=== PATIENT | female | born 1960 | race Caucasian/White ===

== ENCOUNTER 2021-05-27 14:06 | Outpatient (CLI) | payer OTHER ==
--- NOTE | 2021-05-27 16:42 | XRAY Report ---
PROCEDURE: Tib/Fib RT INDICATIONS: KNEE PAIN RT TECHNIQUE: 2 views of the tibia and fibula were acquired. COMPARISON: None. FINDINGS: Bones: No fractures or dislocations. No suspicious bony lesions. Soft tissues: No suspicious soft tissue calcifications or masses. IMPRESSION: No lower leg fracture or dislocation. No suspicious bony lesion or soft tissue abnormality. Reviewed by: Venkatesh Tavarez MD on 05/27/2021 4:41 PM PST Approved by: Venkatesh Tavarez MD on 05/27/2021 4:41 PM PST Station ID: [id number]
--- NOTE | 2021-05-28 09:54 | XRAY Report ---
PROCEDURE: Knee 2 View RT INDICATIONS: Knee pain RT TECHNIQUE: 2 views of the right knee(s) were acquired. COMPARISON: X-ray right tibia and fibula, 05/27/2021. FINDINGS: Bones: No fractures or dislocations. Mild degenerative joint disease. No suspicious bony lesions. Soft tissues: No joint effusion. No suspicious soft tissue calcifications. IMPRESSION: Mild degenerative joint disease. Reviewed by: Lauryn Hyde MD on 05/28/2021 9:52 AM PST Approved by: Lauryn Hyde MD on 05/28/2021 9:52 AM PST Station ID: [id number]
== END 2021-05-27 14:07 | disposition home or self-care (01) ==
LOC: EDBD → DI 14:06
PROVIDERS: ATTEND Internal Medicine
DX: M79.661 Pain in right lower leg (principal); M17.11 Unilateral primary osteoarthritis, right knee

== ENCOUNTER 2021-09-04 09:08 | Outpatient (CLI) | payer OTHER ==
--- NOTE | 2021-09-11 14:51 | Mammography Report ---
BILATERAL DIGITAL SCREENING MAMMOGRAM 3D/2D: 09/04/2021 CLINICAL: Routine screening. Additional films were requested but not obtained. There are scattered fibroglandular elements in bot h breasts. No significant masses, calcifications, or other findings are seen in either breast. IMPRESSION: NEGATIVE There is no mammographic evidence of malignancy. A 1 year screening mammogram is recommended. This exam was interpreted at Station ID: [id number]. NOTE: For mammograms, a report in lay terms will be sent to the patient. Approximately 15% of breast malignancies will not be visualized mammographically. In the management of a palpable breast mass, a negative mammogram must not discourage biopsy of a clinically suspicious lesion. Electronically Signed By: Ulises keyes/[email or web address]:09/11/2021 08:37:30 ACR BI-RADS Category 1: Negative 3341F PARENCHYMAL PATTERN: (A) - The breast(s) demonstrate(s) scattered fibroglandular densities. BI-RADS CATEGORY: (1) - 1 RECOMMENDATION: (ANNUAL) - Recommend routine annual screening mammography. [id number] 1 year screening LATERALITY: (B)
== END 2021-09-04 09:09 | disposition home or self-care (01) ==
LOC: DI.N 09:08
PROVIDERS: ATTEND Internal Medicine
DX: Z12.31 Encounter for screening mammogram for malignant neoplasm of breast (principal)

== ENCOUNTER 2023-05-18 09:58 | Outpatient (CLI) | payer OTHER ==
--- NOTE | 2023-05-19 11:00 | Mammography Report ---
BILATERAL DIGITAL SCREENING MAMMOGRAM 3D/2D: 05/18/2023 CLINICAL: Routine screening. Comparison is made to exam dated: 09/04/2021 mammogram - [facility]. There are scattered areas of fibroglandular density in both breasts (category b / 25%-50% glandular t issue). No significant masses, calcifications, or other findings are seen in either breast. There has been no significant interval change. IMPRESSION: NEGATIVE There is no mammographic evidence of malignancy. A 1 year screening mammogram is recommended. Based on the Tyrer Cuzick model (a risk assessment model) the patient's lifetime risk is 5.0% and her 10 year risk is 2.1%. According to the ACR, ACS, and NCCN guidelines, an annual breast MRI exam omid g with mammogram is recommended if the patients lifetime risk is 20% or greater. This exam was interpreted at Station ID: [id number]. NOTE: For mammograms, a report in lay terms will be sent to the patient. Approximately 15% of breast malignancies will not be visualized mammographically. In the management of a palpable breast mass, a negative mammogram must not discourage biopsy of a clinically suspicious lesion. Electronically Signed By: Adri Hurtado M.D., PH.D eb/[email or web address]:05/18/2023 22:02:21 letter sent: No_Letter ACR BI-RADS Category 1: Negative 3341F PARENCHYMAL PATTERN: (A) - The breast(s) demonstrate(s) scattered fibroglandular densities. BI-RADS CATEGORY: (1) - 1 Mammogram [id number] 1 year screening LATERALITY: (B)
== END 2023-05-18 09:59 | disposition home or self-care (01) ==
LOC: DI 09:58
PROVIDERS: ATTEND Physician Assistant
DX: Z12.31 Encounter for screening mammogram for malignant neoplasm of breast (principal); R92.323 Mammographic fibroglandular density, bilateral breasts

== ENCOUNTER 2023-06-16 16:43 | Outpatient (CLI) | payer OTHER ==
--- NOTE | 2023-06-17 11:20 | Ultrasound Report ---
PROCEDURE: Soft Tissue Head or Neck INDICATIONS: MULTINODULAR GOITER TECHNIQUE: Real-time scanning was performed of the thyroid gland, with image documentation. COMPARISON: None FINDINGS: Right: Thyroid lobe measures 4.6 x 1.7 x 1.8 cm, and is homogeneous in echotexture. Left: Thyroid lobe measures 5.1 x 1.6 x 1.6 cm, and is homogenous in echotexture. Isthmus: 0.3 cm thick. Nodule number: One Location: Isthmus Size: 0.9 cm. Composition: Solid (2 points). Echogenicity: Isoechoic (1 point). Shape: wider than tall (0 points). Margins: Smooth (0 points). Echogenic foci: None (0 points). Total points: 3 ACR TI-RADS category: TI-RADS 3: Mildly suspicious. Nodule number: Two Location: Right superior Size: 0.7 cm. Composition: Solid (2 points). Echogenicity: Hypoechoic (2 points). Shape: wider than tall (0 points). Margins: Smooth (0 points). Echogenic foci: None (0 points). Total points: 4 ACR TI-RADS category: TI-RADS 4: Moderately suspicious. Nodule number: Three Location: Right mid Size: 0.6 cm. Composition: Solid (2 points). Echogenicity: Hypoechoic (2 points). Shape: wider than tall (0 points). Margins: Smooth (0 points). Echogenic foci: None (0 points). Total points: 4 ACR TI-RADS category: TI-RADS 4: Moderately suspicious. Nodule number: Four Location: Right inferior Size: 1.2 cm. Composition: Solid (2 points). Echogenicity: Isoechoic (1 point). Shape: wider than tall (0 points). Margins: Smooth (0 points). Echogenic foci: None (0 points). Total points: 3 ACR TI-RADS category: TI-RADS 3: Mildly suspicious. Nodule number: 5 Location: Left superior Size: 1.1 cm. Composition: Solid (2 points). Echogenicity: Hypoechoic (2 points). Shape: wider than tall (0 points). Margins: Smooth (0 points). Echogenic foci: None (0 points). Total points: 4 ACR TI-RADS category: TI-RADS 4: Moderately suspicious. Nodule number: 6 Location: Left mid Size: 1.1 cm. Composition: Cystic / almost completely cystic (0 points). Echogenicity: Anechoic (0 points). Shape: wider than tall (0 points). Margins: Smooth (0 points). Echogenic foci: None (0 points). Total points: 0 ACR TI-RADS category: TI-RADS 1: Benign. Cystic focus within left parotid gland measuring 9 mm. Additional nonspecific cystic focus within the left neck measuring 1.4 cm. IMPRESSION: Multiple thyroid nodules as described above. 1 year follow-up is recommended. Additional nonspecific cystic foci as above, can be reevaluated on follow-up ultrasound. ACR TI-RADS definitions and recommendations: TI-RADS 1 (benign): 0 points. FNA not needed. TI-RADS 2 (not suspicious): 2 points. FNA not needed. TI-RADS 3 (mildly suspicious): 3 points. "FNA if 2.5 cm or larger, follow up if 1.5 cm or larger (at 1, 3, and 5 years). TI-RADS 4 (moderately suspicious): 4-6 points. "FNA if 1.5 cm or larger, follow up if 1 cm or larger (at 1, 2, 3, and 5 years). TI-RADS 5 (highly suspicious): 7 points or more. "FNA if 1 cm or larger, follow up if 0.5 cm or larger (every year for 5 years). Reviewed by: Nishant Kendall MD on 06/17/2023 11:19 AM PST Approved by: Nishant Kendall MD on 06/17/2023 11:19 AM PST Station ID: [id number]
== END 2023-06-16 16:44 | disposition home or self-care (01) ==
LOC: DI 16:43
PROVIDERS: ATTEND Physician Assistant
DX: E04.2 Nontoxic multinodular goiter (principal)

== ENCOUNTER 2023-09-30 14:52 | Outpatient (CLI) | payer OTHER ==
[2023-09-30 15:19] LABS: CREATININE 0.6 mg/dL (0.6-1.3)
[2023-09-30] MEDS ORDERED: iohexoL-300 100 ML VIAL ONE (15:34)
[2023-09-30] MEDS: iohexoL-300 100 ML VIAL IVP ONE (17:20)
--- NOTE | 2023-09-30 17:39 | CT Report ---
PROCEDURE: Soft Tissue Neck W INDICATIONS: NECK MASS CONTRAST: 100ml [id number] TECHNIQUE: After the administration of intravenous contrast, 3.0 mm axial sections acquired from the sella to th e aortic arch. Additional oblique axial 3.0 mm sections acquired through the pharynx. 3 mm thick co quiana reformats were generated. For radiation dose reduction, the following was used: automated exp osure control, adjustment of mA and/or kV according to patient size. COMPARISON: Correlation is made with ultrasound 06/16/2023. FINDINGS: Image quality: Excellent. Lymph nodes: An area of clinical concern is marked within the left lateral neck. At this site, there is a nonenlarged lymph node seen measuring 8 x 5 mm in greatest axial dimension. No enlarged lymph nodes seen throughout the neck. Vessels: Visualized vasculature appears patent. Neck spaces: The oropharynx, nasopharynx, and pharynx demonstrate no mucosal lesions. The vocal cor ds, false vocal cords, pyriform sinuses, epiglottis, vallecula, and tongue base all appear normal. E xtramucosal spaces appear unremarkable. Glands: The parotid glands are asymmetric, with the left side smaller than the right. No recurrent l eft-sided masses are seen. The right parotid gland is within normal limits. The submandibular glands appear normal. The thyroid demonstrates normal size. Several small thyroid nodules are seen, which are better demons trated on the prior recent ultrasound. Miscellaneous: Visualized brain and orbits appear normal. Lung apices appear clear. Superficial so ft tissues appear normal. Bones: No suspicious bony lesions. Visualized sinuses and mastoids appear unremarkable. Moderate l ower cervical spine degenerative change can be seen. 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 No recurrent masses are seen. No enlarged lymph nodes are seen. At the area of clinical concern involving the left lateral neck, there is a nonenlarged superficial l ymph node seen. Reviewed by: Inder Cole MD on 09/30/2023 4:37 PM AKNBA Approved by: Inder Cole MD on 09/30/2023 4:37 PM AKNBA Station ID: [id number]
== END 2023-09-30 14:53 | disposition home or self-care (01) ==
LOC: LAB 14:52
PROVIDERS: ATTEND Otolaryngology
DX: R22.1 Localized swelling, mass and lump, neck (principal); Z90.49 Acquired absence of other specified parts of digestive tract
CPT/HCPCS: 36415; 70491; 82565; Q9967